=== PATIENT | female | born 1940 | race Caucasian/White ===

== ENCOUNTER 2017-02-21 22:34 | Inpatient (IN) | payer MEDICARE, BC ==
[~2017-02-21] VITALS: Ht 152.4 cm; Wt 70.9 kg
--- NOTE | 2017-02-22 02:06 | ER ---
ADMIT: 02/21/2017 RM/LOC: ER [facility] MR#: [id number] [id number] [place], [place] [address] [address] [address] [place] [address] Emergency Room Report SEX: F AGE: 76 : 1940 DATE: 02/21/2017 HISTORY OF PRESENT ILLNESS: The patient is a 76-year-old female, who just transferred from outside facility. Allegedly, the patient went to the neighbor's door, and while she turned around, there were 2 steps and she tripped over there and she fell hit the forehead, also left elbow and left knee to the ground, the patient did not lose consciousness, the patient had some ecchymosis in the left frontal area, in the outside facility, the patient had CT of the head and neck, which was negative for acute changes, the patient also has some abrasions on the left knee and also left elbow, and x-ray of the left knee and left elbow was positive for left patellar fracture and left supracondylar/distal humerus fracture. Dr. Schmidt already contacted by outside facility. The patient was transferred to the ER, pain was controlled, x-ray imaging/CT scan of the left elbow and x-ray of the left elbow per Dr. Schmidt was done. The patient has a history of coronary artery disease with 2 stents, hypertension, hypothyroidism, and rheumatoid arthritis. The patient denies any chest pain, shortness of breath, or loss of conscious or palpitation during the fall. The patient also denies any passing out or syncope. The patient was admitted by Internal Medicine, Orthopedic Surgery on board for further followups and treatments. Raj Brice MD/ renate JOB #: [id number] CC: Raj Brice MD, Attending Physician
--- NOTE | 2017-02-23 17:48 | HP ---
ADMIT: 02/22/2017 RM/LOC: 502 [facility] MR#: [id number] [address] [address] [address] [address] [place] [address] History and Physical SEX: F AGE: 76 : 1940 DATE OF SERVICE: 02/22/2017 CHIEF COMPLAINT: Elbow and knee pain. HISTORY OF PRESENT ILLNESS: The patient is a very pleasant 76-year-old female, she has past medical history of coronary artery disease status post NH and PCI in 2007, hypertension, hyperlipidemia, on immunosuppression with methotrexate presents to [facility] emergency room today as a transfer patient from [place], [place]. Patient had been over at a neighbor's house when she had a fall from the stairs, she just tripped and caught her foot. She fell striking her left knee and elbow and had immediate pain. She was taken by squad and evaluated at [facility] in which she was noted to have a distal humerus fracture as well as patellar fracture and she was transferred here for definitive treatment. The patient notes that she had no syncope or presyncope prior to the fall, just caught her foot. She denies any chest pain, shortness breath, or palpitations right now. Her knee and elbow pain are under good control. She denies any bowel or bladder complaints. She denies taking all medications as directed. She denies any recent problems with any anginal chest discomfort. The patient does have a history of NH in 1989, she underwent PCI, but notes that she stays very active. She walks at least 3-4 blocks round trip every day down to her mailbox and she says she does that usually in less than 5 minutes without any anginal symptoms. She has had no recent change in exercise tolerance. Did note a stress test that she told me was fine in April of 2015. She does follow with the [facility] here in town. PAST MEDICAL HISTORY: Coronary artery disease, status post NH and PCI in 1997, hypertension, hyperlipidemia, rheumatoid arthritis, on chronic methotrexate. She has a history of prior hysterectomy, history of appendectomy, prior tobacco abuse quit many years ago, cataracts bilaterally, gastroesophageal reflux disease, and hypothyroidism. ALLERGIES: TO OMNICEF, PENICILLINS, AND HYDROCODONE. FAMILY HISTORY: Mother with hypothyroidism. Grandmother with hypothyroidism. She had a grandfather with coronary disease. HOME MEDICATIONS: Include: 1. Methotrexate. 2. Imdur. 3. Folic acid. 4. Levothyroxine. 5. Atorvastatin. 6. Meloxicam. 7. Omeprazole. 8. Aspirin. 9. Fish oil. 10.Calcium. 11.Lutein. ADMIT: 02/22/2017 RM/LOC: 502 [facility] MR#: [id number] [address] [address] [address] [place] [address] History and Physical SEX: F AGE: 76 : 1940 SOCIAL HISTORY: She is . She lives in [place]. She will have a glass of wine on a regular basis. She has not smoked for many years. As mentioned, she is /retired. REVIEW OF SYSTEMS: As noted above. All other systems are reviewed and negative. PHYSICAL EXAMINATION: VITAL SIGNS: 97, 56, 16, 122/46, 95% on couple liters by nasal cannula. GENERAL: This is an elderly female. She is in no apparent distress. She is awake. She is oriented x3. Cooperative with examiner. HEENT: She has right frontal hematoma and some abrasions in right frontal area and down her nose. Mucous membranes little dry, she has a couple chipped teeth on her dentures, she states was from the fall. NECK: Supple. LUNGS: Clear. HEART: Regular. ABDOMEN: Soft, nontender, and nondistended. Positive bowel sounds throughout. EXTREMITIES: Her right elbow was in a sling/splint. Her left leg is in a knee immobilizer. She does not have any edema that is noted. : She had a Kay catheter in place that has some kind of cloudy-appearing urine. NEUROLOGIC: Her cranial nerves are intact. I do not notice any focal deficits at this time. LABORATORY AND X-RAY DATA: Lab work shows a hemoglobin 13.7, white count 10.2, and 185,000 platelets. Sodium 143, potassium 4, BUN is 20, creatinine 0.8. Calcium was 8.4. UA was cloudy with trace blood, 3+ leukocyte esterase, negative nitrite. Micro for some reason was not done. Chest x-ray shows some low lung volumes, but I do not notice any obvious airspace disease. Her EKG was normal sinus rhythm at 50. Her QRS is just a little wide at 118 msec. She has slight left axis deviation. She has what looks like old Q waves in V1 and V2. ASSESSMENT AND PLAN: 1. Accidental fall. 2. Left patellar fracture. 3. Left distal humerus fracture. 4. Left frontal hematomas and abrasions. 5. Coronary artery disease status post NH in 1997 with percutaneous coronary intervention to follow. 6. Hypertension. 7. Hyperlipidemia. 8. Rheumatoid arthritis on chronic methotrexate therapy. At this time, the patient has no active cardiac conditions and overall sounds like she has pretty good exercise tolerance. It sounds like she probably ADMIT: 02/22/2017 RM/LOC: 502 [facility] MR#: [id number] [address] [address] [address] [address] [place] [address] History and Physical SEX: F AGE: 76 : 1940 makes close to 4 metabolic equivalents without any anginal symptoms. Overall right now, I feel like she is probably at least [id number] risk for this for any moderate risk intervention with general anesthesia. She has done well with anesthesia in the past. Of course, we will hold any antiplatelet agents, make sure her pain is controlled. We will keep her n.p.o. Obviously the orthopedic surgeons will be seeing her for possible operative intervention. Right now, I am going to recheck that urine as this looks little cloudy in the Kay tubing right now. I am also told me she had a stress test in April 2015 that looked good but we will check, get copies of that from the [facility] and we will follow along closely. Chuck Garrido MD/ renate JOB #: [id number] CC: Chuck Garrido, Attending Physician Chukc Garrido, Family Physician Christoph Beckham MD
--- NOTE | 2017-03-02 10:42 | CO ---
ADMIT: 02/22/2017 RM/LOC: 502 [facility] MR#: [id number] [id number] [place], [place] [address] [address] [address] [place] [address] Consultation SEX: F AGE: 76 : 1940 DATE OF CONSULTATION: 02/22/2017 ATTENDING PHYSICIAN: Chuck Garrido CONSULTING PHYSICIAN: Micha Schmidt MD CHIEF COMPLAINT: Left elbow and knee fracture. HISTORY OF PRESENT ILLNESS: A 76-year-old female with severe RA, had a mechanical fall yesterday, suffering a left supracondylar humerus fracture as well as a left comminuted patellar fracture. She went to the [facility] ER and was sent here for further management. She does have pain at baseline in that knee and elbow and that was pretty stiff, although functioning prior to this fall, but since the fall, she has had more pain in there. REVIEW OF SYMPTOMS: Otherwise, negative. PAST MEDICAL HISTORY: Significant for RA to a fairly extensive degree with significant rheumatoid hand deformities and arthritis in most of her joints. OBJECTIVE: GENERAL: She is awake, alert and oriented, in no acute distress. EXTREMITIES: Sensation intact to light touch. Brisk capillary refill in bilateral upper and lower extremities. She is able to wiggle all of her fingers, although with deformity and is limited. She is able wiggle her toes again with deformity and is limited. She has an intact straight leg raise with the extensor mechanism able to hold her knee completely extended. Skin is intact there. The elbow is in a well-fitted splint and she seems to be relatively comfortable with that. IMAGING: X-rays shows a comminuted patella fracture with minimal displacement on the left knee and then the left elbow. X-ray and CT scan shows significant degenerative changes within the elbow joint, but also supracondylar humerus fracture that looks like laterally there is still some bony congruency there, it has not completely displaced, and overall it is in adequate alignment, and it seems to be extra-articular just transverse. ASSESSMENT: A 76-year-old, left supracondylar humerus fracture and left ADMIT: 02/22/2017 RM/LOC: 502 [facility] MR#: [id number] [address] [address] [address] [place] [address] Consultation SEX: F AGE: 76 : 1940 patellar fracture. PLAN: I am going to treat this nonoperatively for now with the left knee in a knee immobilizer. I will plan to keep that for about six weeks and keep her nonweightbearing for six weeks. The left elbow, will keep in a splint and nonweightbearing for now. She will need placement as she is unable to live alone and unable to get by on her own, and then I will have her come back and see me in about one week after she has been discharged, and at that point, we will repeat x-rays of the knee and elbow, if there was a question about displacement or anything in that elbow, we may consider referral to somebody who does perform total elbow arthroplasty, may need further specialist for that as she may be a good candidate for that with her rheumatoid and fracture. Micha Schmidt MD/ renate JOB #: [id number] CC: Chuck Garrido, Attending Physician Chuck Garrido, Family Physician
--- NOTE | 2017-03-02 16:22 | DS ---
ADMIT: 02/22/2017 RM/LOC: 502 [facility] MR#: [id number] [address] [address] [address] [address] [place] [address] Discharge Summary SEX: F AGE: 76 : 1940 ADMISSION DATE: 02/22/2017 DISCHARGE DATE: 02/25/2017 DISCHARGE DIAGNOSIS: 1. Accidental fall at home. 2. Chest wall contusions. 3. Left distal humerus fracture. 4. Left patellar fracture. 5. Right fifth metatarsal fracture. 6. Hypokalemia, resolved. 7. Musculoskeletal chest wall pain, resolving. 8. History of coronary disease. 9. Hypertension. 10.Hyperlipidemia. 11.E. coli urinary tract infection. 12.Rheumatoid arthritis, on chronic methotrexate therapy. 13.Anxiety/insomnia, transient. CONSULTATION: Orthopedics. PROCEDURES: None. REASON FOR ADMISSION: A very pleasant 76-year-old female who presented to [facility] today as a transfer for direct admission from [place]. The patient noted a mechanical fall from a set of stairs. When she hit the ground, she noticed immediate pain in her left arm and her left knee. She was found to have patellar and humeral fractures and transferred for further evaluation and treatment. For complete details, please see history and physical dictated on the day of admission. HOSPITAL COURSE: At the time of admission, the patient was placed in a Med/Surg bed and Orthopedics was consulted for definitive and possible operative interventions. After seeing and evaluating the patient, they did not think that operative intervention was appropriate and her right arm was splinted. She was placed in a straight leg knee immobilizer on the left. She was seen by PT and OT. She did have some difficulty getting around. Her urine did appear purulent at the time of admission and she was started on antibiotics. She ended up growing out some E. coli that was sensitive to Levaquin. She also complained of some right foot pain and underwent some imaging of the right foot that did show a right foot 5th proximal metatarsal fracture that she was put in a postop shoe for. She did have some transient hypokalemia that was resolved. She did have a little bit of chest discomfort during her inpatient stay. She had negative cardiac enzymes and telemetry monitoring. She was tender on chest wall palpation that reproduced her pain, so this was really thought to be musculoskeletal in nature. She was maintained on DVT prophylaxis. Her home meds were restarted. She was switched from IV Levaquin to oral Levaquin when her culture and sensitivities came back on the E. coli. As mentioned, she was seen by PT and OT, and thought not to be safe at home and so plans were made for Social Work to see ADMIT: 02/22/2017 RM/LOC: 502 [facility] MR#: [id number] [address] [address] [address] [address] [place] [address] Discharge Summary SEX: F AGE: 76 : 1940 the patient and arrangements were made for admission to [facility] in [place], [place] for rehab given her inability to ambulate or to perform ADLs given all of her fractures. Her discharge activity is per Orthopedics' recommendations and Physical Therapy. Her diet will be cardiac as tolerated. Her medications are found on discharge medication list. Really the only change was from her home meds of course with the addition of Lovenox for DVT prophylaxis as well as the addition of Levaquin for her urinary tract infection, which she will finish out a five day course of that. She will have followup with orthopedic doctors as scheduled and she will see her primary care physician upon arrival to [place]. Chuck Garrido MD/ nell JOB #: [id number] CC: Chuck Garrido MD, Attending Physician Chuck Garrido MD, Family Physician Christoph Beckham MD
== END 2017-02-25 12:40 | DRG 563 ==
LOC: ER 22:34 → 5MS 02-22 00:15
PROVIDERS: ADMIT Internal Medicine
DX: S82.002A Unspecified fracture of left patella, initial encounter for closed fracture (principal); M06.9 Rheumatoid arthritis, unspecified; N39.0 Urinary tract infection, site not specified; I10 Essential (primary) hypertension; S42.412A Displaced simple supracondylar fracture without intercondylar fracture of left humerus, initial encounter for closed fracture; B96.20 Unspecified Escherichia coli [E. coli] as the cause of diseases classified elsewhere; F41.9 Anxiety disorder, unspecified; F51.02 Adjustment insomnia; E87.6 Hypokalemia; W19.XXXA Unspecified fall, initial encounter; S20.219A Contusion of unspecified front wall of thorax, initial encounter; K21.9 Gastro-esophageal reflux disease without esophagitis; S00.83XA Contusion of other part of head, initial encounter; S92.351A Displaced fracture of fifth metatarsal bone, right foot, initial encounter for closed fracture; I25.10 Atherosclerotic heart disease of native coronary artery without angina pectoris; E03.9 Hypothyroidism, unspecified; Z95.5 Presence of coronary angioplasty implant and graft; I25.2 Old myocardial infarction; E78.5 Hyperlipidemia, unspecified; Z79.899 Other long term (current) drug therapy; Z87.891 Personal history of nicotine dependence; Z82.49 Family history of ischemic heart disease and other diseases of the circulatory system; Z79.82 Long term (current) use of aspirin; Z66 Do not resuscitate